=== PATIENT | female | born 1970 | race Two or more races ===

== ENCOUNTER 2018-12-07 23:59 | Emergency (ER) | payer OTHER ==
[~2018-12-07] VITALS: Ht 160 cm; Wt 68.1 kg
[~2018-12-07 23:59] MED LIST: ASPI81TA45 PO; ATOR20TA37 PO; INSU100C5 SQ-INSULIN; INSU100V13 SC; LISI-170 PO; METF500T17 PO; METO25TA35 PO; RANI-448 PO
[2018-12-08 00:43] LABS: BASOPHILS # (AUTO) 0.03 x10^3/uL (0-0.1); BASOPHILS % (AUTO) 1 % (0-1); EOSINOPHILS # (AUTO) 0.36 x10^3/uL (0-0.4); EOSINOPHILS % (AUTO) 6 % (1-7); LYMPHOCYTES # (AUTO) 2.09 x10^3/uL (1-3.4); LYMPHOCYTES % (AUTO) 36 % (22-44); MD NO; MEAN CORPUSCULAR HEMOGLOBIN 30.5 pg (27.0-34.8); MEAN CORPUSCULAR VOLUME 92.5 fL (80-100); MEAN PLATELET VOLUME 8.3 fL (7.4-10.4); MONOCYTES # (AUTO) 0.68 x10^3/uL (0.2-0.8); MONOCYTES % (AUTO) 12 % (2-9); NEUTROPHILS # (AUTO) 2.73 x10^3/uL (1.8-6.8); NEUTROPHILS % (AUTO) 46 % (42-75); PLATELET COUNT 247 x10^3/uL (130-400); RED CELL DISTRIBUTION WIDTH 12.7 % (9.6-15.2)
[2018-12-08 00:55] LABS: ALBUMIN 3.6 g/dL (3.4-5.0); ANION GAP 7 mmol/L (5-15); CALCIUM 8.8 mg/dL (8.5-10.1); CHLORIDE 102 mmol/L (98-107); CREATININE 1.03 mg/dL (0.55-1.02)
[2018-12-08 00:59] LABS: TROPONIN I < 0.015 ng/mL (0.000-0.045)
--- NOTE | 2018-12-08 01:00 | NUR ---
received report from DMITRIY Rodriguez
--- NOTE | 2018-12-08 01:45 | NUR ---
re-evaluation done. patient discharged with prescriptions and instruction. verbalized understanding.
[2018-12-08 01:58] VITALS: BP 156/81
== END 2018-12-08 02:00 | disposition home or self-care (01) ==
LOC: ED 12-08 01:49
DX: J01.00 Acute maxillary sinusitis, unspecified (principal); E10.65 Type 1 diabetes mellitus with hyperglycemia; I10 Essential (primary) hypertension
CPT/HCPCS: 36415; 71046; 80048; 82040; 84484; 85025; 93005; 99284

== ENCOUNTER 2020-12-26 20:09 | Emergency (ER) | payer OTHER ==
[~2020-12-26] VITALS: Ht 160 cm; Wt 62.7 kg
[~2020-12-26 20:09] MED LIST changes: -RANI-448 PO; +RANI-460 PO
[2020-12-26 20:30] VITALS: BP 152/70
[2020-12-26] MEDS ORDERED: HYDROcodone/APAP 5/325 TABLET PO ONE (21:00)
--- NOTE | 2020-12-26 23:00 | NUR ---
[employer]: PT. SIGNED AMA PAPERWORK AND LEFT ED.
== END 2020-12-26 23:01 | disposition other institution (70) ==
LOC: ED 20:20
DX: K02.9 Dental caries, unspecified (principal)
CPT/HCPCS: 99281